=== PATIENT | female | born 1965 | race American Indian/Alaskan Native ===

== ENCOUNTER 2020-07-21 08:49 | Outpatient (CLI) | payer OTHER ==
--- NOTE | 2020-07-21 11:19 | XRay Report ---
BILATERAL KNEES 4 VIEWS 0914 INDICATION: ARTHRITIS BILATERAL KNEES COMPARISON: None available. FINDINGS: Moderate bilateral degenerative changes are seen most affecting the patellofemoral and late ral compartments. No fractures or dislocations are seen. No obvious joint effusions are noted. Signer Name: Luis A Burgess MD Signed: 07/21/2020 11:15 AM Workstation Name: [id number]
== END 2020-07-21 08:50 | disposition home or self-care (01) ==
LOC: XRAY 08:49
PROVIDERS: ATTEND Internal Medicine
DX: M17.0 Bilateral primary osteoarthritis of knee (principal)

== ENCOUNTER 2022-02-21 13:29 | Emergency (ER) | payer SELFPAY | END 2022-02-21 15:30 | disposition left against medical advice (07) | LOC: ED 13:29 | DX: R51.9 Headache, unspecified (principal); Z53.21 Procedure and treatment not carried out due to patient leaving prior to being seen by health care provider; V89.2XXA Person injured in unspecified motor-vehicle accident, traffic, initial encounter; Y93.89 Activity, other specified; Y92.89 Other specified places as the place of occurrence of the external cause; Y99.8 Other external cause status ==